=== PATIENT | male | born 1950 | race Caucasian/White ===

== ENCOUNTER 2017-12-05 09:19 | Emergency (ER) | payer MEDICARE ==
--- NOTE | 2017-12-05 10:04 | Emergency Department Record ---
History of Present Illness - General Chief Complaint: Back Pain/Injury Stated Complaint: BACK PAIN RADIATING DOWN RT LEG Time Seen by Provider: 12/05/17 09:37 Source: Patient, RN notes reviewed - History of Present Illness Initial Comments: right SI joint pain which started 2 days ago and some radiation into the right leg. Primary Dr. Givens. Patient smokes cigarrettes and denies alcohol use and hasn't seen his DrRafal in a couple of years MD Complaint: Back pain Onset/Timin -: Days(s) Similar Symptoms Previously: Yes (see above) Place: Home Radiation: Right leg Severity: Moderate Severity scale (1-10): 8 Quality: Sharp, Stabbing Consistency: Getting worse Improves With: Immobilization Worsens With: Movement, Walking Context: Unknown Associated Symptoms: Denies other symptoms - Related Data Previous Rx's Medication Instructions Recorded Cyclobenzaprine HCl [Flexeril] 10 mg PO TID #30 tablet 12/05/17 Naproxen [Naprosyn] 500 mg PO BID #30 tablet 12/05/17 Allergies Allergy/AdvReac Type Severity Reaction Status Date / Time No Known Drug Allergies Allergy Verified 12/05/17 09:29 Travel Screening - Travel/Exposure Within Last 30 Days Have you traveled within the last 30 days?: No - Travel/Exposure Within Last Year Have you traveled outside the [place] in the last year?: No - Additonal Travel Details Have you been exposed to anyone with a communicable illness?: No - Travel Symptoms Symptom Screening: None Review of Systems Reviewed: No additional complaints except as noted below Constitutional: Reports: As per HPI. Denies: Chills, Fever, Malaise, Night sweats, Weakness, Weight change Eyes: Reports: As per HPI. Denies: Eye discharge, Eye pain, Photophobia, Vision change ENT: Reports: As per HPI. Denies: Congestion, Dental pain, Ear pain, Epistaxis , Hearing loss, Throat pain Respiratory: Reports: As per HPI. Denies: Cough, Dyspnea, Hemoptysis, Stridor, Wheezes Cardiovascular: Reports: As per HPI. Denies: Arrhythmia, Chest pain, Dyspnea on exertion, Edema, Murmurs, Orthopnea, Palpitations, Paroxysmal nocturnal dyspnea, Rheumatic Fever, Syncope Endocrine: Reports: As per HPI. Denies: Fatigue, Heat or cold intolerance, Polydipsia, Polyuria Gastrointestinal: Reports: As per HPI. Denies: Abdominal pain, Constipation, Diarrhea, Hematemesis, Hematochezia, Melena, Nausea, Vomiting Genitourinary: Reports: As per HPI. Denies: Dysuria, Frequency, Hematuria, Incontinence, Retention, Testicular pain, Testicular mass, Urgency Musculoskeletal: Reports: As per HPI, Back pain. Denies: Arthralgia, Gout, Joint swelling, Myalgia, Neck pain Skin: Reports: As per HPI. Denies: Bruising, Change in color, Change in hair/ nails, Lesions, Pruritus, Rash Neurological: Reports: As per HPI. Denies: Abnormal gait, Confusion, Headache, Numbness, Paresthesias, Seizure, Tingling, Tremors, Vertigo, Weakness Psychiatric: Reports: As per HPI. Denies: Anxiety, Auditory hallucinations, Depression, Homicidal thoughts, Suicidal thoughts, Visual hallucinations Hematological/Lymphatic: Reports: As per HPI. Denies: Anemia, Blood Clots, Easy bleeding, Easy bruising, Swollen glands Past Medical History - SOCIAL HISTORY Smoking Status: Current every day smoker Alcohol Use: None Drug Use: None - RESPIRATORY Hx Respiratory Disorders: No - CARDIOVASCULAR Hx Cardio Disorders: No - NEURO Hx Neuro Disorders: No - GI Hx GI Disorders: No - Hx Genitourinary Disorders: No - ENDOCRINE Hx Endocrine Disorders: No - MUSCULOSKELETAL Hx Musculoskeletal Disorders: No - PSYCH Hx Psych Problems: No - HEMATOLOGY/ONCOLOGY Hx Hematology/Oncology Disorders: No Family Medical History Any Significant Family History?: Yes Hx Cancer: Mother Physical Exam - General General Appearance: Alert, Oriented x3, Cooperative, No acute distress - Head Head exam: Normal inspection - Eye Eye exam: Normal appearance, PERRL Pupils: Normal accommodation - ENT ENT exam: Normal exam, Mucous membranes moist, Normal external ear exam, Normal orophraynx, TM's normal bilaterally Ear exam: Normal external inspection. negative: External canal tenderness Nasal Exam: Normal inspection. negative: Discharge, Sinus tenderness Mouth exam: Normal external inspection, Tongue normal Teeth exam: Normal inspection. negative: Dental caries Throat exam: Normal inspection. negative: Tonsillar erythema, Tonsillar exudate - Neck Neck exam: Normal inspection, Full ROM. negative: Tenderness - Respiratory Respiratory exam: Normal lung sounds bilaterally. negative: Respiratory distress - Cardiovascular Cardiovascular Exam: Regular rate, Normal rhythm, Normal heart sounds - GI/Abdominal GI/Abdominal exam: Soft, Normal bowel sounds. negative: Tenderness - Rectal Rectal exam: Deferred - exam: Deferred - Extremities Extremities exam: Normal inspection, Full ROM, Normal capillary refill, Tenderness - Back Back exam: Reports: Normal inspection, Full ROM, Muscle spasm, Tenderness ( right SI joint area). Denies: Rash noted - Neurological Neurological exam: Alert, Normal gait, Oriented X3, Reflexes normal - Psychiatric Psychiatric exam: Normal affect, Normal mood - Skin Skin exam: Dry, Intact, Normal color, Warm Course Vital Signs 12/05/17 09:30 Temperature 97.5 F L Pulse Rate 82 Respiratory 16 Rate Blood Pressure 144/75 Pulse Ox 97 Disposition Clinical Impression: Lumbar strain Qualifiers: Encounter type: initial encounter Qualified Code(s): S39.012A - Strain of muscle, fascia and tendon of lower back, initial encounter Disposition: Home, Self-Care Condition: (1) Good Instructions: Low Back Strain (ED) Additional Instructions: heat to back three times a day. follow up with family Dr in [address] Givens Prescriptions: Cyclobenzaprine HCl [Flexeril] 10 mg PO TID #30 tablet Naproxen [Naprosyn] 500 mg PO BID #30 tablet Time of Disposition: 10:07 Quality - Quality Measures Quality Measures: N/A - Blood Pressure Screening Does Patient Have Any of the Following: No Blood Pressure Classification: Hypertensive Reading Systolic Measurement: 144 Diastolic Measurement: 75 Screening for High Blood Pressure: < Pre-Hypertensive BP, F/U Documented > [ G8950] Pre-Hypertensive Follow-up Interventions: Referral to alternative/primary care provider.
[2017-12-05] MEDS ORDERED: KETOROLAC 30 MG/ML VIAL IM ONE (10:07)
== END 2017-12-05 10:15 | disposition home or self-care (01) ==
LOC: ER 09:19
DX: S39.012A Strain of muscle, fascia and tendon of lower back, initial encounter (principal); Y92.009 Unspecified place in unspecified non-institutional (private) residence as the place of occurrence of the external cause; F17.210 Nicotine dependence, cigarettes, uncomplicated
CPT/HCPCS: 99283 ×2; 96372; J1885

== ENCOUNTER 2017-12-06 10:44 | Emergency (ER) | payer MEDICARE ==
[2017-12-06] MEDS ORDERED: PREDNISONE 20 MG TAB PO ONE (11:26)
[2017-12-06] MEDS ORDERED: KETOROLAC 30 MG/ML VIAL IM ONE (11:27)
--- NOTE | 2017-12-06 12:16 | Emergency Department Record ---
History of Present Illness - General Chief complaint: Pain Stated complaint: PAIN IN RT HIP DOWN LEG Time Seen by Provider: 12/06/17 11:26 Source: Patient Mode of Arrival: Wheelchair Limitations: No limitations - History of Present Illness Initial comments: Pain to right hip/buttock to leg. Seen here yesterday with same. No trauma or injury. no Hx of similar. Pain improved with Toradol and Flexaril yesterday given in ED, but returned today. No bladder or bowel dysfunction. No weakness or numbness to legs. Lives alone. Onset/Timin -: Days(s) Location: Right, Other History of Same: No Radiation: Distal Severity scale (1-10): 10 Quality: Sharp Consistency: Intermittent Improves with: Immobilization Worsens with: Walking, Weight bearing Associated Symptoms: Denies other symptoms - Related Data Previous Rx's Medication Instructions Recorded Cyclobenzaprine HCl [Flexeril] 10 mg PO TID #30 tablet 12/05/17 Naproxen [Naprosyn] 500 mg PO BID #30 tablet 12/05/17 Prednisone [Prednisone 20Mg] 40 mg PO DAILY 4 Days #8 tab 12/06/17 Allergies Allergy/AdvReac Type Severity Reaction Status Date / Time No Known Drug Allergies Allergy Verified 12/06/17 11:05 Travel Screening - Travel/Exposure Within Last 30 Days Have you traveled within the last 30 days?: No Review of Systems Constitutional: Denies: Fever, Malaise, Night sweats, Weakness Eyes: Denies: Photophobia ENT: Denies: Congestion Respiratory: Denies: Cough, Dyspnea Cardiovascular: Denies: Arrhythmia, Chest pain Endocrine: Denies: Fatigue Gastrointestinal: Denies: Abdominal pain Genitourinary: Denies: Dysuria, Hematuria Musculoskeletal: Reports: As per HPI, Back pain Skin: Denies: Rash Neurological: Reports: Abnormal gait. Denies: Headache, Tingling, Tremors Psychiatric: Denies: Anxiety, Suicidal thoughts Hematological/Lymphatic: Denies: Anemia Past Medical History - SOCIAL HISTORY Smoking Status: Current every day smoker Alcohol Use: None Drug Use: None - RESPIRATORY Hx Respiratory Disorders: No - CARDIOVASCULAR Hx Cardio Disorders: No - NEURO Hx Neuro Disorders: No - GI Hx GI Disorders: No - Hx Genitourinary Disorders: No - ENDOCRINE Hx Endocrine Disorders: No - MUSCULOSKELETAL Hx Musculoskeletal Disorders: No - PSYCH Hx Psych Problems: No - HEMATOLOGY/ONCOLOGY Hx Hematology/Oncology Disorders: No Family Medical History Any Significant Family History?: Yes Hx Cancer: Mother Physical Exam - General General Appearance: Alert, Oriented x3, Cooperative, Mild distress - Head Head exam: Atraumatic - Eye Eye exam: Normal appearance, PERRL, EOMI - ENT ENT exam: Normal exam, Mucous membranes moist, Normal external ear exam, Normal orophraynx - Neck Neck exam: Normal inspection, Full ROM. negative: Lymphadenopathy - Respiratory Respiratory exam: Normal lung sounds bilaterally, Rhonchi, Wheezes - Cardiovascular Cardiovascular Exam: Regular rate, Normal rhythm, Normal heart sounds Peripheral Pulses: 2+: Dorsalis Pedis (R), Dorsalis Pedis (L) - GI/Abdominal GI/Abdominal exam: Soft, Normal bowel sounds. negative: Tenderness - Extremities Extremities exam: Normal inspection, Full ROM. negative: Calf tenderness, Joint swelling, Tenderness - Back Back exam: Reports: Tenderness (Right SI joint area - piriformis tension on the right.). Denies: CVA tenderness (R), CVA tenderness (L) - Neurological Neurological exam: Alert, CN II-XII intact, Oriented X3, Reflexes normal (Toe and heel walk intact, SLR neg bilateral to 90. ) Course Vital Signs 12/06/17 11:01 Temperature 98.7 F Pulse Rate 92 H Respiratory 18 Rate Blood Pressure 136/81 Pulse Ox 99 - Reevaluation(s) Reevaluation #1: 12/06/17 12:23 discussed with patient to take steroids as instructed first does in the ED> Continue other meds including muscle relaxer. DO NOT take Naprosyn with the Prednisone due to risk of GI bleed. No alcohol with meds. Follw with family doctor in 2-3 days. If not improved needs further evaluation. Disposition Disposition: Discharge Clinical Impression: Sciatica Disposition: Home, Self-Care Condition: (2) Stable Instructions: Sciatica (ED), Piriformis Syndrome (ED) Additional Instructions: Steroids as instructed. Do not take Naprosyn with the Steroids. Prescriptions: Prednisone [Prednisone 20Mg] 40 mg PO DAILY 4 Days #8 tab Forms: Patient Portal Access Quality - Quality Measures Quality Measures: N/A - Blood Pressure Screening Does Patient Have Any of the Following: No Blood Pressure Classification: Pre-Hypertensive BP Reading Systolic Measurement: 136 Diastolic Measurement: 81 Screening for High Blood Pressure: < Pre-Hypertensive BP, F/U Documented > [ G8950] Pre-Hypertensive Follow-up Interventions: Follow-up with rescreen every year.
== END 2017-12-06 12:39 | disposition home or self-care (01) ==
LOC: ER 10:44
DX: M54.41 Lumbago with sciatica, right side (principal); F17.210 Nicotine dependence, cigarettes, uncomplicated
CPT/HCPCS: 99283 ×2; 96372; J1885; J7512

== ENCOUNTER 2017-12-07 10:49 | Emergency (ER) | payer MEDICARE ==
[2017-12-07] MEDS ORDERED: MORPHINE SULFATE 10 MG/ML VIAL IM ONE (11:18)
[2017-12-07] MEDS ORDERED: ONDANSETRON 4 MG ODT TABLET SL ONE (11:18)
--- NOTE | 2017-12-07 11:28 | Emergency Department Record ---
History of Present Illness - General Chief complaint: Extremity Problem Stated complaint: HIP PAIN Time Seen by Provider: 12/07/17 10:52 Source: Patient Mode of Arrival: Ambulatory Limitations: No limitations - History of Present Illness Initial comments: The patient is here due to a 3-4 day hx of R lower back pain. The onset was gradual and the pain is a sharp stabbing pain that starts in the R lower back and radiates down the R leg intermittently. The pain is much worse with walking , standing and bending. There is no reported leg numbness, weakness, or any bowel or bladder dysfunction. The patient has been to the ER yesterday and the day prior for the same issues and is on a pain medicine and muscle relaxer. He does deny any trauma, injury, fever, chills, recent illnesses, or hematuria but he has had mild dysuria off and on for weeks. The patient has had a similar issue in the past regarding the back pain many years ago and did see a chiropracter for it with improvement. MD Complaint: Other Onset/Timin -: Days(s) Location: Right, Thigh History of Same: No Radiation: Distal Severity scale (1-10): 10 Quality: Sharp Consistency: Constant Improves with: Nothing Worsens with: Exertion, Walking, Weight bearing - Related Data Previous Rx's Medication Instructions Recorded Cyclobenzaprine HCl [Flexeril] 10 mg PO TID #30 tablet 12/05/17 Naproxen [Naprosyn] 500 mg PO BID #30 tablet 12/05/17 Prednisone [Prednisone 20Mg] 40 mg PO DAILY 4 Days #8 tab 12/06/17 Ciprofloxacin HCl [Cipro] 500 mg PO Q12HR #14 tablet 12/07/17 Hydrocodone/Acetaminophen [[place] 1 each PO QID #12 tablet 12/07/17 5-325 Tablet] Hydrocodone/Acetaminophen [[place] 1 each PO QID #12 tablet 12/07/17 5-325 Tablet] Allergies Allergy/AdvReac Type Severity Reaction Status Date / Time No Known Drug Allergies Allergy Verified 12/07/17 11:01 Travel Screening - Travel/Exposure Within Last 30 Days Have you traveled within the last 30 days?: No - Travel/Exposure Within Last Year Have you traveled outside the [place] in the last year?: No - Additonal Travel Details Have you been exposed to anyone with a communicable illness?: No - Travel Symptoms Symptom Screening: None Review of Systems Constitutional: Denies: Chills, Fever Eyes: Denies: Eye discharge ENT: Denies: Congestion Respiratory: Denies: Cough Cardiovascular: Denies: Arrhythmia, Chest pain Endocrine: Denies: Fatigue Gastrointestinal: Denies: Abdominal pain, Diarrhea, Nausea, Vomiting Genitourinary: Denies: Dysuria Musculoskeletal: Reports: Back pain. Denies: Arthralgia Skin: Denies: Bruising Past Medical History - SOCIAL HISTORY Smoking Status: Current every day smoker Alcohol Use: None Drug Use: None - RESPIRATORY Hx Respiratory Disorders: No - CARDIOVASCULAR Hx Cardio Disorders: No - NEURO Hx Neuro Disorders: No - GI Hx GI Disorders: No - Hx Genitourinary Disorders: No - ENDOCRINE Hx Endocrine Disorders: No - MUSCULOSKELETAL Hx Musculoskeletal Disorders: No - PSYCH Hx Psych Problems: No - HEMATOLOGY/ONCOLOGY Hx Hematology/Oncology Disorders: No Family Medical History Any Significant Family History?: Yes Hx Cancer: Mother Physical Exam - General General Appearance: Alert, Oriented x3, Cooperative, No acute distress - Head Head exam: Atraumatic, Normocephalic, Normal inspection - Eye Eye exam: Normal appearance, PERRL - Neck Neck exam: Normal inspection, Full ROM. negative: Tenderness - Respiratory Respiratory exam: Normal lung sounds bilaterally. negative: Respiratory distress - Cardiovascular Cardiovascular Exam: Regular rate, Normal rhythm, Normal heart sounds - GI/Abdominal GI/Abdominal exam: Soft, Normal bowel sounds. negative: Rebound, Rigid, Tenderness - Extremities Extremities exam: Normal inspection, Full ROM, Normal capillary refill, Other ( Neg SLR bilaterally.). negative: Tenderness - Back Back exam: Reports: Normal inspection. Denies: Muscle spasm, Paraspinal tenderness, Vertebral tenderness Image of Body Front/Back: 1 - Area of pain but no tenderness. - Neurological Neurological exam: Abnormal gait, Alert, Oriented X3, Reflexes normal. negative : Altered, Motor sensory deficit, Normal gait - Psychiatric Psychiatric exam: negative: Anxious Course Vital Signs 12/07/17 11:02 Temperature 97.6 F Pulse Rate 88 Respiratory 20 Rate Blood Pressure 133/79 Pulse Ox 98 - Reevaluation(s) Reevaluation #1: The patient is doing much better at this time. The pain is much improved and he is able to get up and walk with no limping and does not need his cane. 12/07/17 12:21 Reevaluation #2: The patient is doing a lot better at this time. He is up walking with very little difficulty and I did discuss the positive urine test for infection with him. He states he has had UTI's in the past and usually has had Cipro for them. I did discuss the need to F/U with Dr. Fuentes in 2 days. 12/07/17 12:48 Medical Decision Making - Data Complexity MDM Data: Labs Ordered and/or Reviewed, X-Ray Ordered and/or Reviewed - Lab Data Result diagrams: 12/07/17 11:30 12/07/17 11:30 - Radiology Data Radiology results: Report reviewed (LS Spine: Deg changes, O/W neg.) Disposition Disposition: Discharge Clinical Impression: UTI (urinary tract infection), uncomplicated Sciatica Qualifiers: Laterality: right Qualified Code(s): M54.31 - Sciatica, right side Disposition: Home, Self-Care Condition: (2) Stable Instructions: Urinary Tract Infection in Men (ED), Acute Low Back Pain (ED) Additional Instructions: Please take your home pain meds as previously instructed and also use the [place] in small doses. Please take the Cipro as directed and please see Dr. Fuentes for recheck in 2 days. Return to the ER for any worsening pain, leg numbness, weakness, or any bowel or bladder issues. Also return for any AP, fever, or vomiting. Prescriptions: Ciprofloxacin HCl [Cipro] 500 mg PO Q12HR #14 tablet Hydrocodone/Acetaminophen [[place] 5-325 Tablet] 1 each PO QID #12 tablet Hydrocodone/Acetaminophen [[place] 5-325 Tablet] 1 each PO QID #12 tablet Forms: Patient Portal Access Time of Disposition: 12:52 Quality - Quality Measures Quality Measures: N/A - Blood Pressure Screening View Details: Yes Does Patient Have Any of the Following: No Blood Pressure Classification: Pre-Hypertensive BP Reading Systolic Measurement: 128 Diastolic Measurement: 79 Screening for High Blood Pressure: < Pre-Hypertensive BP, F/U Documented > [ G8950] Pre-Hypertensive Follow-up Interventions: Referral to alternative/primary care provider.
[2017-12-07 11:40] LABS: BASO % 0.1 % (0-6); EOS % 2.4 % (0-6); GRAN % 63.3 % (47-80); HEMOGLOBIN 16.1 gm/dl (14.0-18.0); LYMPH % 24.5 % (16-45); MEAN CELL VOLUME 100.6 fl (81-97); MEAN CORPUSCULAR HEMOGLOBIN 33.8 pg (27-33); MEAN CORPUSCULAR HGB CONC 33.5 g/dl (32-36); MEAN PLATELET VOLUME 9.1 fl (7.4-10.4); MONO % 9.7 % (0-9); PLATELET COUNT 283 K/uL (130-400); RED BLOOD COUNT 4.77 M/uL (4.40-5.70); RED CELL DISTRIBUTION WIDTH 14.7 % (11.5-14.5); WHITE BLOOD COUNT W/O DIFF 8.5 K/uL (4.2-12.2)
[2017-12-07 11:49] LABS: BLOOD UREA NITROGEN 12 mg/dL (8-23); CREATININE 0.7 mg/dL (0.7-1.2); EST GLOMERULAR FILTRATION RATE > 60 mL/min
[2017-12-07 11:52] LABS: GLUCOSE,RANDOM 104 mg/dL (74-109)
[2017-12-07 11:54] LABS: ALT/SGPT 17 U/L (<41)
[2017-12-07 11:55] LABS: ALBUMIN 4.7 g/dL (4.0-5.0); ALKALINE PHOSPHATASE 59 U/L (40-129); AST/SGOT 22 U/L (10.0-50.0)
[2017-12-07 12:05] LABS: C-REACTIVE PROTEIN < 0.04 mg/dL (<0.5)
[2017-12-07 12:22] LABS: ERYTHROCYTE SEDIMENTATION RATE 2 mm/hr (0-20)
[2017-12-07 12:24] LABS: URINE BILIRUBIN NEGATIVE (NEGATIVE); URINE BLOOD NEGATIVE (NEGATIVE); URINE COLOR YELLOW; URINE GLUCOSE (UA) NEGATIVE (NEGATIVE); URINE KETONE NEGATIVE (NEGATIVE); URINE LEUKOCYTE ESTERASE MODERATE (NEGATIVE); URINE NITRITE NEGATIVE (NEGATIVE); URINE PROTEIN NEGATIVE (NEGATIVE); URINE UROBILINOGEN 0.2 E.U./dL (0.20 - 1.00)
[2017-12-07 12:42] LABS: URINE APPEARANCE SL CLOUDY
[2017-12-07 12:44] LABS: URINE BACTERIA 3+; URINE EPITHELIAL CELLS 0 - 2 (FEW); URINE RBC 0 - 2 (NONE SEEN); URINE WBC 16 - 20 (0-2/hpf)
== END 2017-12-07 13:01 | disposition home or self-care (01) ==
LOC: ER 10:49
DX: N39.0 Urinary tract infection, site not specified (principal); M54.31 Sciatica, right side; F17.210 Nicotine dependence, cigarettes, uncomplicated
CPT/HCPCS: 99283; 96372; 99284; 85025; 85651; 86140; 80053; 81001; 72110; J2270